=== PATIENT | male | born 1965 | race Caucasian/White ===

== ENCOUNTER 2020-11-16 17:53 | Emergency (ER) | payer OTHER ==
[2020-11-16 18:04] VITALS: BP 136/94; PULSE 94; TEMP 98.4; BMI 25.7
[2020-11-16 19:08] LABS: BASO % 1.5 % (0-2.0); EOS % 1.7 % (0-4.5); HEMATOCRIT 42.8 % (35.4-49); HEMOGLOBIN 14.3 GM/dl (11.7-16.9); LYMPH % 23.3 % (8-40); MCH 29.8 pg (25.7-33.7); MCHC 33.4 g/dl (32.0-35.9); MEAN CELL VOLUME 89.1 fl (80-96); MEAN PLT VOLUME 8.4 fl (7.5-11.1); MONO % 5.4 % (3.8-10.2); NEUT % 68.1 % (42.8-82.8); PLATELET COUNT 213 K/MM3 (134-434); RDW 11.7 % (11.9-15.9); WHITE BLOOD COUNT 7.6 K/mm3 (4.0-10.8)
[2020-11-16 19:31] LABS: ALBUMIN 4.1 g/dl (3.4-5.0); BILIRUBIN,TOTAL 0.8 mg/dl (0.2-1); CREATININE 1.1 mg/dl (0.55-1.3); POTASSIUM 3.7 mmol/L (3.5-5.1); TOT PROT 6.5 g/dl (6.4-8.2)
== END 2020-11-16 22:10 | disposition home or self-care (01) ==
LOC: FER 17:53
DX: R10.2 Pelvic and perineal pain (principal); I89.8 Other specified noninfective disorders of lymphatic vessels and lymph nodes
CPT/HCPCS: 36415; 74177-TC; 80053; 81003; 81015; 85025; 87086; 99284-25; Q9967